=== PATIENT | male | born 1945 | race Caucasian/White ===

== ENCOUNTER 2021-01-25 22:27 | Emergency (ER) | payer BC, MEDICARE ==
[2021-01-25] MEDS ORDERED: Sodium Chloride 0.9% 10 ML Syringe FLUSH PRN (23:10)
[2021-01-25] MEDS ORDERED: Albuterol/Ipratropium 3.0-0.5 MG/3 ML Neb Soln NEB ONE (23:10)
[2021-01-25] MEDS ORDERED: methylPREDNISolone Sodium Succinate 125 MG/2 ML SDV IVPUSH ONE (23:10)
--- NOTE | 2021-01-25 23:16 | EDM.PDOC ---
ED HPI GENERAL MEDICAL PROBLEM - General Chief Complaint: Respiratory Problem Stated Complaint: CAN'T BREATHE Time Seen by Provider: 01/25/21 22:41 Source of Information: Reports: Patient History Limitations: Reports: No Limitations - History of Present Illness INITIAL COMMENTS - FREE TEXT/NARRATIVE: Durga is a 75-year-old male with a history of COPD who presents to the emergen cy room with increased difficulty breathing and cough. The patient started his prednisone taper yesterday due to the acute exacerbation of COPD. He has been using his DuoNeb's and has not had any significant improvement in his shortness of breath. He and his are up in the area from [place], [place] for vacation and the patient has been in an area that lacks air conditioning. The patient did have mild improvement in the air conditioning in the car. Patient denies any fever or chills, lightheadedness, sore throat, nasal congestion or rhinorrhea. He is not on any oxygen. He does get frequent exacerbations of his COPD. Is unaware of what his FEV1 is at this time. denies pain Pain Score (Numeric/FACES): 0 - Related Data Allergies Allergy/AdvReac Type Severity Reaction Status Date / Time Penicillins Allergy Anaphylactic Verified 01/25/21 22:59 Shock Home Meds: Home Meds Albuterol Sulfate [Albuterol Sulfate Hfa] 1 - 2 puff IN ASDIRECTED 01/25/21 [History] Fluticasone/Salmeterol [Advair 500-50] 1 - 2 puff IN BID 01/25/21 [History] Ipratropium/Albuterol Sulfate [Iprat-Albut 0.5-3(2.5) mg/3 ml] 1 dose IN ASDIRECTED 01/25/21 [History] Tamsulosin HCl [Flomax] 2 tab PO DAILY 01/25/21 [History] Tiotropium [Spiriva HandiHaler] 1 - 2 puff IN ASDIRECTED 01/25/21 [History] atorvaSTATin Calcium [Atorvastatin Calcium] 1 tab PO BEDTIME 01/25/21 [History] levoFLOXacin [Levaquin] 500 mg PO DAILY 6 Days #6 tab 01/25/21 [Rx] lisinopriL [Lisinopril] 1 tab PO DAILY 01/25/21 [History] predniSONE [Prednisone] 1 tab PO ASDIRECTED 01/25/21 [History] Social & Family History - Tobacco Use Tobacco Use Status *Q: Current Every Day Tobacco User Years of Tobacco use: 60 Packs/Tins Daily: 0.5 - Caffeine Use Caffeine Use: Reports: Coffee - Recreational Drug Use Recreational Drug Use: No ED ROS GENERAL - Review of Systems Review Of Systems: See Below Constitutional: Reports: No Symptoms HEENT: Reports: No Symptoms Respiratory: Reports: Shortness of Breath, Wheezing, Cough. Denies: Sputum Cardiovascular: Reports: No Symptoms Endocrine: Reports: No Symptoms GI/Abdominal: Reports: No Symptoms : Reports: No Symptoms Musculoskeletal: Reports: No Symptoms Skin: Reports: No Symptoms Neurological: Reports: No Symptoms Psychiatric: Reports: No Symptoms Hematologic/Lymphatic: Reports: No Symptoms Immunologic: Reports: No Symptoms ED EXAM, GENERAL - Physical Exam Exam: See Below Exam Limited By: No Limitations General Appearance: Alert, Anxious, Mild Distress Eye Exam: Bilateral Eye: EOMI, PERRL Nose: Normal Inspection Throat/Mouth: Normal Inspection, Normal Oropharynx, Normal Voice, No Airway Compromise Head: Atraumatic, Normocephalic Neck: Normal Inspection, Supple, Non-Tender, Full Range of Motion Respiratory/Chest: No Respiratory Distress, Wheezing (Scant inspiratory wheezes, pronounced expiratory wheezes with prolonged expiration), Accessory Muscle Use, Retractions, Prolonged Expiration Cardiovascular: Normal Peripheral Pulses, Regular Rate, Rhythm, No Murmur GI/Abdominal: Normal Bowel Sounds, Soft, Non-Tender Extremities: Normal Inspection Neurological: Alert, Oriented, Normal Cognition, No Motor/Sensory Deficits Psychiatric: Normal Affect, Normal Mood Skin Exam: Warm, Dry Lymphatic: No Adenopathy Course - Vital Signs Last Recorded V/S: Last Vital Signs Temp 36.6 C 01/25/21 23:00 Pulse 91 01/25/21 23:00 Resp 22 H 01/25/21 23:00 BP 147/64 H 01/25/21 23:00 Pulse Ox 95 01/25/21 23:00 - Orders/Labs/Meds Orders: Active Orders 24 hr Category Date Time Status RT Aerosol Therapy [RC] ASDIRECTED Care 01/25/21 23:11 Active Chest 2V [CR] Stat Exams 01/25/21 23:10 Taken Sodium Chloride 0.9% [Saline Flush] Med 01/25/21 23:10 Active 10 ml FLUSH ASDIRECTED PRN Saline Lock Insert [OM.PC] Routine Oth 01/25/21 23:10 Ordered Medication Orders Sodium Chloride (Sodium Chloride 0.9% 10 Ml Syringe) 10 ml FLUSH ASDIRECTED PRN PRN Reason: Keep Vein Open Last Admin: 01/25/21 23:52 Dose: 10 ml Documented by: ELVER Labs: Laboratory Tests 01/25/21 01/25/21 Range/Units 23:30 23:30 WBC 5.4 (4.5-11.0) K/uL RBC 4.15 L (4.30-5.90) M/uL Hgb 12.4 (12.0-15.0) g/dL Hct 38.3 L (40.0-54.0) % MCV 92 (80-98) fL MCH 30 (27-31) pg MCHC 32 (32-36) % Plt Count 316 (150-400) K/uL Neut % (Auto) 78.1 H (36-66) % Lymph % (Auto) 9.6 L (24-44) % [place] % (Auto) 11.4 H (2-6) % Eos % (Auto) 0.7 L (2-4) % Baso % (Auto) 0.2 (0-1) % Sodium 137 L (140-148) mmol/L Potassium 4.1 (3.6-5.2) mmol/L Chloride 102 (100-108) mmol/L Carbon Dioxide 26 (21-32) mmol/L Anion Gap 13.1 (5.0-14.0) mmol/L BUN 22 H (7-18) mg/dL Creatinine 1.0 (0.8-1.3) mg/dL Est Cr Clr Drug Dosing 59.85 mL/min Estimated GFR (MDRD) > 60 (>60) Glucose 105 (74-106) mg/dL Calcium 9.0 (8.5-10.1) mg/dL Total Bilirubin 0.5 (0.2-1.0) mg/dL AST 52 H (15-37) U/L ALT 41 (12-78) U/L Alkaline Phosphatase 121 H (46-116) U/L C-Reactive Protein 0.67 H (0.0-0.3) mg/dL Total Protein 7.1 (6.4-8.2) g/dL Albumin 3.1 L (3.4-5.0) g/dL Globulin 4.0 H (2.3-3.5) g/dL Albumin/Globulin Ratio 0.8 L (1.2-2.2) Meds: Medications Generic Name Dose Route Start Last Admin Trade Name Freq PRN Reason Stop Dose Admin Sodium Chloride 10 ml 01/25/21 23:10 01/25/21 23:52 Sodium Chloride 0.9% 10 Ml Syringe FLUSH 10 ml ASDIRECTED PRN Administration Keep Vein Open Discontinued Medications Generic Name Dose Route Start Last Admin Trade Name Freq PRN Reason Stop Dose Admin Albuterol/Ipratropium 3 ml 01/25/21 23:10 01/25/21 23:52 Albuterol/Ipratropium 3.0-0.5 Mg/3 Ml Neb Soln NEB 01/25/21 23:11 3 ml ONETIME ONE Administration Levofloxacin/Dextrose 750 mg/ 150 mls @ 100 mls/hr 01/25/21 23:54 01/26/21 00:02 Premix IV 01/26/21 01:23 100 mls/hr ONETIME ONE Administration Methylprednisolone Sodium Succinate 125 mg 01/25/21 23:10 01/25/21 23:52 Methylprednisolone Sodium Succinate 125 Mg/2 Ml Sdv IVPUSH 01/25/21 23:11 125 mg ONETIME ONE Administration - Re-Assessments/Exams Free Text/Narrative Re-Assessment/Exam: 01/25/21 23:56 patient was initially given Solu-Medrol 125 mg IV and a DuoNeb for his increasing shortness of breath. Labs were drawn including a CBC, comprehensive metabolic panel, and CRP. The patient underwent a chest x-ray showing left lower lobe infiltrates. This is consistent with an acute pneumonia. He also has evidence for COPD with flattened diaphragms and hyperinflation. Patient has mild cardiomegaly on his chest x-ray as well. His CBC shows a leukocyte count of 5.4 with a left shift, hemoglobin of 12.4 with hematocrit of 38.5 and a platelet count of 316,000. His comprehensive metabolic panel is unremarkable with a BUN of 22 and a creatinine of 1.0. His C-reactive protein is mildly elevated 0.67. 01/25/21 23:58 the patient was given Levaquin 750 mg IV for loading to treat his pneumonia. We will put him on 500 mg daily for 6 more days to be started tomorrow. I recommend the patient stay in air conditioning to decrease the pollen which is likely irritating his COPD as well. As he is not requiring oxygen at this time, there is no indication to hospitalize him however, should he develop increasing shortness of breath I do advise him to return to the ED for reevaluation. May continue to do his duo nebs and continue his steroid taper. Departure - Departure Time of Disposition: : Disposition: Home, Self-Care 01 Clinical Impression: Acute exacerbation of chronic obstructive pulmonary disease (COPD) Right lower lobe pneumonia Qualifiers: Pneumonia type: due to unspecified organism Qualified Code(s): J18.9 - Pneumonia, unspecified organism - Discharge Information Prescriptions: levoFLOXacin [Levaquin] 500 mg PO DAILY 6 Days #6 tab Instructions: Chronic Obstructive Pulmonary Disease Exacerbation, [id number], Community-Acquired Pneumonia, Adult Referrals: PCP,None [Primary Care Provider] - Forms: ED Department Discharge Care Plan Goals: I would recommend wearing a mask while up you are exposed to the tree pollen which is exceedingly high this year. This will help reduce the exposure to allergens. I am putting you on Levaquin 1 tablet daily for the next 6 days. You may start that tomorrow night. Continue to use your DuoNeb inhaler, Spiriva inhaler, and Advair inhaler as before. I would continue the prednisone taper as well. Return to the ED should you develop any significant worsening of your shortness of breath. I hope that you enjoy your time up here at the [facility] and that you find it restful. Make sure to tell Andreas Salazar that I said hi when you see him later this month. Sepsis Event Note (ED) - Evaluation Sepsis Screening Result: No Definite Risk - Focused Exam Vital Signs: Vital Signs Temp Pulse Resp BP Pulse Ox 01/25/21 23:00 36.6 C 91 22 H 147/64 H 95 01/25/21 22:48 36.6 C 91 22 H 147/64 H 95 - Problem List & Annotations (1) Acute exacerbation of chronic obstructive pulmonary disease (COPD) SNOMED Code(s): 843907940 Code(s): J44.1 - CHRONIC OBSTRUCTIVE PULMONARY DISEASE W (ACUTE) EXACERBATION Status: Acute Priority: High Current Visit: Yes (2) Right lower lobe pneumonia SNOMED Code(s): 072788070 Code(s): J18.9 - PNEUMONIA, UNSPECIFIED ORGANISM Status: Acute Priority: High Current Visit: Yes Qualifiers: Pneumonia type: due to unspecified organism Qualified Code(s): J18.9 - Pneumonia, unspecified organism - Problem List Review Problem List Initiated/Reviewed/Updated: Yes - My Orders Last 24 Hours: My Active Orders 01/25/21 23:10 Chest 2V [CR] Stat Sodium Chloride 0.9% [Saline Flush] 10 ml FLUSH ASDIRECTED PRN Saline Lock Insert [OM.PC] Routine 01/25/21 23:11 RT Aerosol Therapy [RC] ASDIRECTED - Assessment/Plan Last 24 Hours: My Active Orders 01/25/21 23:10 Chest 2V [CR] Stat Sodium Chloride 0.9% [Saline Flush] 10 ml FLUSH ASDIRECTED PRN Saline Lock Insert [OM.PC] Routine 01/25/21 23:11 RT Aerosol Therapy [RC] ASDIRECTED
[2021-01-25] MEDS ORDERED: Levofloxacin/Dextrose 5%-Water 750 MG in Premix Bag 1 BAG IV ONE (23:54)
--- NOTE | 2021-01-27 10:14 | CR ---
CHEST: 2 view CLINICAL HISTORY:Dyspnea, cough, COPD COMPARISON:None FINDINGS: Heart size and pulmonary vascularity are normal. There are atherosclerotic changes in the aorta. There is patchy density in the right lower lung field suspect for pneumonic infiltrate. There is a 12 mm nodular density in the left lung base near the hemidiaphragm. Chronology is uncertain Impression: Right lower lobe pneumonic infiltrate 12 mm nodule in the left lower lobe of uncertain chronology. The patient has prior chest x-rays in the can be made available an addendum report will be issued. If there is no prior study, a noncontrast CT chest is recommended following course of therapy for infiltrate
== END 2021-01-26 01:46 | disposition home or self-care (01) ==
LOC: JP.ED 22:27
DX: J44.0 Chronic obstructive pulmonary disease with (acute) lower respiratory infection (principal); J18.9 Pneumonia, unspecified organism; J44.1 Chronic obstructive pulmonary disease with (acute) exacerbation; Z88.0 Allergy status to penicillin; Z72.0 Tobacco use; Z79.899 Other long term (current) drug therapy
CPT/HCPCS: 36415; 71046; 80053; 85025; 86140; 94640; 96365; 96375; 99285; J1956; J2930; 99283; J7620-GY